=== PATIENT | female | born 1990 | race Caucasian/White ===

== ENCOUNTER 2016-12-14 18:13 | Emergency (ER) | payer OTHER ==
[2016-12-14] MEDS ORDERED: PHENAZOPYRIDINE 100 MG TABLET PO STA (20:00)
[2016-12-14] MEDS ORDERED: SULFAMETH/TRIMETH DS 800/160 MG TABLET PO STA (20:00)
[2016-12-14] MEDS ORDERED: PHENAZOPYRIDINE 100 MG TABLET PO ONE (20:03)
== END 2016-12-14 20:14 | disposition home or self-care (01) ==
DX: N30.00 Acute cystitis without hematuria (principal)
CPT/HCPCS: 81001; 81025; 99283; A9270

== ENCOUNTER 2017-03-29 09:51 | Outpatient (CLI) | payer OTHER | END 2017-03-29 09:52 | disposition home or self-care (01) | LOC: LAB.R 09:51 | PROVIDERS: ATTEND Obstetrics & Gynecology | DX: Z11.3 Encounter for screening for infections with a predominantly sexual mode of transmission (principal) | CPT/HCPCS: 87491; 87591 ==

== ENCOUNTER 2017-09-16 08:00 | Outpatient (CLI) | payer OTHER ==
[2017-09-16 18:53] LABS: BASOPHILS # (AUTO) 0.1 10^3/uL (0.0-0.1); BASOPHILS % (AUTO) 0.8 %; EOSINOPHILS # (AUTO) 0.1 10^3/uL (0.0-0.7); EOSINOPHILS % (AUTO) 1.1 %; HGB - HEMOGLOBIN 11.9 g/dL (12.0-16.0); LYMPHOCYTES # (AUTO) 1.6 10^3/uL (1.5-3.5); MEAN CORPUSCULAR HEMOGLOBIN 30.8 pg (27.0-31.0); MEAN CORPUSCULAR HGB CONC 33.6 g/dL (32.0-36.0); MEAN CORPUSCULAR VOLUME 91.7 fL (81.0-99.0); MEAN PLATELET VOLUME 8.4 fL (7.9-10.8); MONOCYTES # (AUTO) 0.6 10^3/uL (0.0-1.0); MONOCYTES % (AUTO) 6.2 %; NEUTROPHILS # (AUTO) 6.7 10^3/uL (1.5-6.6); NEUTROPHILS % (AUTO) 73.9 %; PLT - PLATELET COUNT 269 10^3/uL (130-450); RED BLOOD COUNT 3.87 10^6/uL (4.20-5.40); RED CELL DISTRIBUTION WIDTH 13.2 % (12.0-15.0)
[2017-09-17 12:01] LABS: HEPATITIS B SURFACE ANTIGEN NON-REACTIVE (NON-REACTIVE)
[2017-09-17 12:51] LABS: HIV AG/AB 4TH GEN NON-REACTIVE (NON-REACTIVE)
== END 2017-09-16 08:01 | disposition home or self-care (01) ==
LOC: LAB.N 08:00
PROVIDERS: ATTEND Obstetrics & Gynecology
DX: Z36.9 Encounter for antenatal screening, unspecified (principal)
CPT/HCPCS: 36415; 81001; 81599; 85025; 86762; 86850; 86900; 86901; 87340; 87389

== ENCOUNTER 2017-09-17 13:32 | Outpatient (CLI) | payer OTHER ==
[2017-09-17 19:30] LABS: BILIRUBIN,URINE NEGATIVE (NEGATIVE); GLUCOSE, URINE (UA) NEGATIVE (NEGATIVE); KETONES,URINE (UA) NEGATIVE (NEGATIVE); LEUKOCYTE ESTERASE, URINE NEGATIVE (NEGATIVE); NITRITE,URINE NEGATIVE (NEGATIVE); OCCULT BLOOD,URINE NEGATIVE (NEGATIVE); PH,URINE 6.5 PH (5.0-7.5); PROTEIN,URINE NEGATIVE (NEGATIVE); UROBILINOGEN,URINE 0.2 (NORMAL) E.U./dL (NORMAL)
[2017-09-17 19:37] LABS: BACTERIA,URINE Moderate /HPF (None Seen); CLARITY,URINE CLEAR (CLEAR); CRYSTALS,URINE 0-2 Calcium Oxalate /LPF; RBC,URINE 0-5 /HPF (0-5); SQUAMOUS EPITHELIAL CELL,UR MOD Squamous (<= Few)
== END 2017-09-17 13:33 | disposition home or self-care (01) ==
LOC: LAB.R 13:32
PROVIDERS: ATTEND Obstetrics & Gynecology
DX: Z36.9 Encounter for antenatal screening, unspecified (principal)
CPT/HCPCS: 81001

== ENCOUNTER 2017-12-19 07:29 | Outpatient (CLI) | payer OTHER ==
--- NOTE | 2017-12-19 16:21 | Ultrasound Report ---
OB ULTRASOUND: 12/19/2017 CLINICAL INDICATION: anatomy. TECHNIQUE: Real-time scanning was performed with chemical sales representative static images obtained. LAST MENSTRUAL PERIOD: 07/23/2017 Clinical Age: 21 weeks 2 days US Age: 21 weeks 2 days EFW Hadlock: 436 grams EFW% Hadlock: 61% Heart Rate: 146 bpm EDC: 04/29/2018 US EDC: 04/29/2018 BPD Hadlock: 21 weeks 0 days; Mean mm 50 HC Hadlock: 21 weeks 0 days; Mean mm 187 AC Hadlock: 21 weeks 6 days; Mean mm 169 FL Hadlock: 21 weeks 3 days; Mean mm 36 Presentation: variable Placental Location: anterior Cervical Length: TA 4.1 cm Amniotic Fluid: subjectively normal; MVP 3.7 cm FINDINGS There is a single viable intrauterine gestation, in variable position. heart rate is 146 BPM. The placenta is anterior, without evidence of previa. Amniotic fluid volume is subjectively normal, with deepest pocket of 3.7 cm. By size, the fetus measures 21 weeks 2 days (21 weeks 2 days by LMP). The following anatomic structures were visualized and appear normal: The intracranial contents, including the ventricles and posterior fossa; the lips and orbits; the spine; the heart, including 4 chamber view and outflow tracts, and diaphragm; the abdominal contents, including the stomach, the bilateral kidneys, and urinary bladder, as well as a normal 3 vessel cord insertion; 4 limbs. No free fluid or adnexal lesion is appreciated. IMPRESSION: SINGLE VIABLE INTRAUTERINE GESTATION, WITH SIZE IN KEEPING WITH LMP DATING. NORMAL ANATOMIC SURVEY. TD: 12/19/2017 11:39 [facility]
== END 2017-12-19 07:30 | disposition home or self-care (01) ==
LOC: DI 07:29
PROVIDERS: ATTEND Obstetrics & Gynecology
DX: Z36.9 Encounter for antenatal screening, unspecified (principal)
CPT/HCPCS: 76811

== ENCOUNTER 2018-02-07 16:05 | Outpatient (CLI) | payer OTHER ==
[2018-02-07 17:36] LABS: HGB - HEMOGLOBIN 11.8 g/dL (12.0-16.0); MEAN CORPUSCULAR HEMOGLOBIN 30.7 pg (27.0-31.0); MEAN CORPUSCULAR HGB CONC 33.5 g/dL (32.0-36.0); MEAN CORPUSCULAR VOLUME 91.8 fL (81.0-99.0); MEAN PLATELET VOLUME 6.9 fL (7.9-10.8); RED BLOOD COUNT 3.83 10^6/uL (4.20-5.40); RED CELL DISTRIBUTION WIDTH 12.6 % (12.0-15.0); WHITE BLOOD COUNT 12.1 x10^3/uL (4.8-10.8)
== END 2018-02-07 16:06 | disposition home or self-care (01) ==
LOC: LAB 16:05
PROVIDERS: ATTEND Obstetrics & Gynecology
DX: Z34.90 Encounter for supervision of normal pregnancy, unspecified, unspecified trimester (principal)
CPT/HCPCS: 36415; 82950; 85027; 86850

== ENCOUNTER 2018-03-06 15:50 | Outpatient (CLI) | payer OTHER ==
[2018-03-06] MEDS ORDERED: LACTATED RINGERS 1,000 ML IV ONE (16:37)
[2018-03-06] MEDS ORDERED: SODIUM CHLORIDE FLUSH 0.9% 10 ML SYRINGE ONE (16:56)
[2018-03-06 16:58] LABS: BILIRUBIN,URINE NEGATIVE (NEGATIVE); GLUCOSE, URINE (UA) NEGATIVE (NEGATIVE); KETONES,URINE (UA) NEGATIVE (NEGATIVE); LEUKOCYTE ESTERASE, URINE NEGATIVE (NEGATIVE); NITRITE,URINE NEGATIVE (NEGATIVE); OCCULT BLOOD,URINE NEGATIVE (NEGATIVE); PROTEIN,URINE NEGATIVE (NEGATIVE); UROBILINOGEN,URINE 0.2 (NORMAL) E.U./dL (NORMAL)
[2018-03-06 17:01] LABS: CLARITY,URINE CLEAR (CLEAR)
[2018-03-06 20:37] VITALS: BP 120/77
== END 2018-03-06 20:25 | disposition home or self-care (01) ==
LOC: WFO 15:50 → FBP 15:52 → WFO 20:25
PROVIDERS: ATTEND Nurse Practitioner Obstetrics & Gynecology
DX: O47.03 False labor before 37 completed weeks of gestation, third trimester (principal); Z3A.32 32 weeks gestation of pregnancy
CPT/HCPCS: 81003; 99213; J7120; 81001

== ENCOUNTER 2018-03-27 16:17 | Outpatient (CLI) | payer OTHER | END 2018-03-27 23:59 | disposition home or self-care (01) | LOC: LAB.R 16:17 | PROVIDERS: ATTEND Registered Nurse | DX: R30.0 Dysuria (principal) | CPT/HCPCS: 87086 ==

== ENCOUNTER 2018-03-31 14:53 | Outpatient (CLI) | payer OTHER | END 2018-03-31 14:54 | disposition home or self-care (01) | LOC: LAB.R 14:53 | PROVIDERS: ATTEND Registered Nurse | DX: Z34.83 Encounter for supervision of other normal pregnancy, third trimester (principal) | CPT/HCPCS: 87081 ==

== ENCOUNTER 2018-04-07 10:33 | Outpatient (CLI) | payer OTHER ==
[2018-04-07 10:53] LABS: BASOPHILS # (AUTO) 0.1 10^3/uL (0.0-0.1); BASOPHILS % (AUTO) 1.1 %; EOSINOPHILS # (AUTO) 0.1 10^3/uL (0.0-0.7); EOSINOPHILS % (AUTO) 1.2 %; HGB - HEMOGLOBIN 12.4 g/dL (12.0-16.0); LYMPHOCYTES # (AUTO) 1.8 10^3/uL (1.5-3.5); LYMPHOCYTES % (AUTO) 15.9 %; MEAN CORPUSCULAR HEMOGLOBIN 30.6 pg (27.0-31.0); MEAN CORPUSCULAR HGB CONC 34.7 g/dL (32.0-36.0); MEAN CORPUSCULAR VOLUME 88.1 fL (81.0-99.0); MEAN PLATELET VOLUME 9.2 fL (7.9-10.8); MONOCYTES % (AUTO) 8.4 %; NEUTROPHILS # (AUTO) 8.4 10^3/uL (1.5-6.6); NEUTROPHILS % (AUTO) 73.4 %; PLT - PLATELET COUNT 227 10^3/uL (130-450); RED BLOOD COUNT 4.07 10^6/uL (4.20-5.40); WHITE BLOOD COUNT 11.4 x10^3/uL (4.8-10.8)
[2018-04-07] MEDS ORDERED: LABETALOL 100 MG TABLET PO SCH ×2 (11:00→12:00)
[2018-04-07 11:04] LABS: URIC ACID 7.1 mg/dL (2.6-7.2)
[2018-04-07 11:14] LABS: CREATININE,URINE 20.4 mg/dL
[2018-04-07 11:22] LABS: TOTAL PROTEIN,URINE TIMED < 6 mg/dL
[2018-04-07 13:15] VITALS: BP 140/100
== END 2018-04-07 13:00 | disposition home or self-care (01) ==
LOC: WFO 10:33 → FBP 10:35 → WFO 13:00
PROVIDERS: ATTEND Nurse Practitioner Obstetrics & Gynecology
DX: O13.3 Gestational [pregnancy-induced] hypertension without significant proteinuria, third trimester (principal); Z3A.36 36 weeks gestation of pregnancy
CPT/HCPCS: 36415; 59025; 82570; 83615; 84156; 84450; 84550; 85025; 99213; A9270

== ENCOUNTER 2018-04-08 01:44 | Inpatient (IN) | payer OTHER ==
--- NOTE | 2018-04-07 14:26 | HISTORY & PHYSICAL EXAMINATION ---
Admit History - Instructions [place]/Slash: -Left hand click circles element as positive or present. -Right hand click slashes element as negative or not present. - Visit Reason Visit Reason: Other - : 1 Parity: 0 Premature: 0 Ectopic: 0 : 0 Care: positive: [facility] Risk/History: positive: None Complications This : positive: Other Smoking Status: Never smoker - Mother's Labs Mother's Blood Type: positive: A Mother's RH: positive: Positive GBS: positive: Group B Strep Positive Rubella Status: positive: Immune Meds/Allgy - Home Medications Home Medications: Ambulatory Orders Medication Instructions Recorded Confirmed Omeprazole [PriLOSEC] 20 mg PO DAILY 12/14/16 12/14/16 Phenazopyridine HCl [Pyridium] 200 mg PO TID #6 tablet 12/14/16 Sulfamethoxazole/Trimethoprim 1 each PO BID 3 Days tablet 12/14/16 [Sulfamethoxazole-Tmp Ds Tablet] - Allergies Allergies/Adverse Reactions: Allergies Allergy/AdvReac Type Severity Reaction Status Date / Time No Known Drug Allergies Allergy Verified 12/14/16 18:28 Plan for Labor - Plan For Labor I expect patient to be DC'd or transferred within 96 hours.: Yes Plan for Labor: HPI: Grace presented for routine care [facility] on 01/2018 where she was noted to have elevated BP in severe range. She was directed to L&D for immediate evaluation for severe gestational HTN and assessment of status. Upon her arrival her BP was serially elevated in the moderate-severe range. PIH labs and MTP/creatinine ratio ordered. NST revealed heart rate baseline 130s, moderate variability, + accels, no decels. Intermittent uterine contractions. Pt states contractions have increased in intensity since SVE in the office. SVE at that time 80/-1, vertex , midposition, soft consistency. Reports +FM. She denies MAX, visual disturbances , RUQ or epigastric pain, neg edema. Dating Criteria: 1. LMP 07/23/2017 2. First ultrasound 09/13/2017 @ 8 weeks - agrees 3. Serial exams 11-37wks agree OB History: G1: Current [employer] History: Menarche at age 12; menses q 27-28 days, regular No hx abnormal pap-last pap 09/2017 WNL No hx STDs No hx [employer] surgeries PMHx: Hiatal hernia Surgical Hx: Tonsillectomy 1995 Social Hx: Never smoker. She is a teacher. No high risk activities. [place]. No ETOH or IVDA. Family Hx: Breast cancer - maternal grandmother labs: A Pos; Antibody neg GC/CT neg Hgb 11.9; Hct 35.5; PLT 269 Hep B non-reactive RPR non-reactive HIV non-reactive Rubella immune 28 week labs: 1 hour GTT 106 Antibody neg Hgb 11.8 GBS positive 04/07/2018 PIH labs: Hgb 12.4 Hct 35.8 PLT 227 Uric acid 7.1 AST 36 LDH 114 Urine total protein <6 Protein/Creatinine Ratio <0.2 Ultrasound: FAS WNL; anterior placenta, no previa. Size c/w dating. Assessment: 27yo @ 36.6wks gestation by L=8wk U/S Severe gestational HTN S/p 100mg labetalol PO x 2 doses - normotensive Cervix favorable PIH labs WNL Plan: Release home with precautions. Pt to return promptly at 0800 on 04/08/2018 for IOL secondary to severe gestational HTN Will initiate penicillin for GBS prophylaxis upon admit Initiate misoprostol 50mcg BC q 4 hours Plan AROM when cervix 3-4cm dilatation and min 2 doses antibiotics administered for GBS prophylaxis. Reviewed warning s/sx and precautions. Pt verbalized understanding and agrees to above plan. Denies further questions or concerns at this time.
[2018-04-08] MEDS ORDERED: PENICILLIN G POTASSIUM 5,000,000 UNIT in SODIUM CHLORIDE 0.9% MINIBAG 100 ML IV ONE ×2 (02:58→08:00)
[2018-04-08 03:00] LABS: BASOPHILS # (AUTO) 0.1 10^3/uL (0.0-0.1); BASOPHILS % (AUTO) 0.8 %; EOSINOPHILS # (AUTO) 0.1 10^3/uL (0.0-0.7); EOSINOPHILS % (AUTO) 0.8 %; HGB - HEMOGLOBIN 11.9 g/dL (12.0-16.0); LYMPHOCYTES # (AUTO) 2.2 10^3/uL (1.5-3.5); LYMPHOCYTES % (AUTO) 15.6 %; MEAN CORPUSCULAR HEMOGLOBIN 30.2 pg (27.0-31.0); MEAN CORPUSCULAR HGB CONC 34.3 g/dL (32.0-36.0); MEAN CORPUSCULAR VOLUME 88.1 fL (81.0-99.0); MEAN PLATELET VOLUME 9.7 fL (7.9-10.8); MONOCYTES # (AUTO) 1.2 10^3/uL (0.0-1.0); MONOCYTES % (AUTO) 8.5 %; NEUTROPHILS # (AUTO) 10.7 10^3/uL (1.5-6.6); NEUTROPHILS % (AUTO) 74.3 %; PLT - PLATELET COUNT 217 10^3/uL (130-450); RED BLOOD COUNT 3.93 10^6/uL (4.20-5.40); RED CELL DISTRIBUTION WIDTH 13.2 % (12.0-15.0); WHITE BLOOD COUNT 14.4 x10^3/uL (4.8-10.8)
[2018-04-08] MEDS ORDERED: SODIUM CHLORIDE FLUSH 0.9% 10 ML SYRINGE IVP PRN ×2 (03:01→08:00)
[2018-04-08] MEDS ORDERED: fent/BUPIV 2 MCG/0.125% 250 ML EP ONE (03:21)
[2018-04-08 03:32] LABS: RUPTURE OF MEMBRANES PLUS POSITIVE (NEGATIVE)
[2018-04-08] MEDS ORDERED: LIDOCAINE 1% 50 ML MDV ONE (03:42)
[2018-04-08] MEDS ORDERED: OXYTOCIN/SODIUM CHLORIDE 500 ML IV ONE ×3 (03:50→10:13)
[2018-04-08] MEDS ORDERED: LACTATED RINGERS 1,000 ML IV SCH ×2 (04:00→08:00)
[2018-04-08] MEDS: LABETALOL 100 MG TABLET PO SCH ×3 (04:51→20:06)
[2018-04-08] MEDS ORDERED: WITCH HAZEL/GLYCERIN 1 EACH MED..PAD TOP PRN (05:08)
[2018-04-08] MEDS ORDERED: HYDROCORTISONE/PRAMOXINE 10 GM PR PRN (05:08)
[2018-04-08] MEDS ORDERED: OXYTOCIN/SODIUM CHLORIDE 250 ML IV ONE (05:08)
--- NOTE | 2018-04-08 05:20 | DELIVERY NOTE ---
Delivery Note - Labor Labor: positive: Spontaneous - Delivery Method Delivery Method: positive: Spontaneous vaginal delivery - Presentation Presentation: positive: Vertex, NALINI - left occiput anterior - Nuchal Cord Nuchal Cord: positive: None - Amniotic Fluid Description Amniotic Fluid Description: positive: Clear - Episiotomy Type Episiotomy Type: positive: None - Laceration Laceration: positive: 1st degree, Labial - Suture Suture Type: positive: Vicryl, Chromic Suture Size: positive: 2-0, 4-0 - Delivery Outcome Delivery Outcome: positive: Livebirth - : positive: Placed in direct skin contact with mother, Stimulated, Eland used [place] sex: positive: Male - Cord Cord: positive: 3 vessels - Placenta Placenta: positive: Intact, Spontaneous - Estimated Blood Loss Estimated Blood Loss (in cc): 400 - Post Delivery Events Post Delivery Events: positive: No post delivery events - Delivery Comments (Free Text/Narrative) Delivery Comments (Free Text/Narrative): Labor: This 27yo @ 37.0wks gestation by L=8wk U/S presented at approximately 0230 in active labor and c/o leakage of a small amount of clear vaginal fluid beginning at 0000. Cervix was 4/90/0 and vertex. FHR pattern demonstrated 130s baseline in a Category I pattern. Normal labor course. Patient progressed rapidly to c/c/+1 with spontaneous urge to push at 0335. : Normal SVB of a viable male . No nuchal. 's 9 and 9 at 1 and 5 min respectively at 0414 on 04/08/2018. The was placed on maternal abdomen, stimulated, dried, and placed skin to skin. The umbilical cord was allowed to stop pulsating at which time it was doubly clamped and cut by FOB. Cord blood was obtained. Placenta delivered spontaneously and intact at 0421. 3VC. Pitocin was administered via IV for hemostasis. EBL 400mL. Fourth Stage: Uterine fundus firm and there is no excessive bleeding. The perineum, vagina, and cervix were inspected and found to have first degree laceration which was repaired using 2-[address]-1 needle under sterile conditions in the usual fashion. Additionally there were minor bilateral labial lacerations which were repaired with interrupted stitches using a 4-0 chromic on an SH needle in the usual fashion under sterile conditions. Vaginal examination following repair was done. Tissue well approximated. initiated. Family bonding well. Both mother and baby were left in stable conditions.
[2018-04-08] MEDS: IBUPROFEN 800 MG TABLET PO SCH ×4 (05:58→23:50)
[2018-04-08] MEDS: ACETAMINOPHEN 325 MG TABLET PO PRN ×3 (05:59→17:48)
[2018-04-08] MEDS ORDERED: PENICILLIN G POTASSIUM 2,500,000 UNIT in SODIUM CHLORIDE 0.9% 100ML 100 ML IV SCH ×2 (06:30→12:00)
[2018-04-08] MEDS ORDERED: SODIUM CHLORIDE FLUSH 0.9% 10 ML SYRINGE IVP SCH ×2 (08:00→09:00)
[2018-04-08] MEDS ORDERED: miSOPROStol 100 MCG TABLET BC SCH (08:00)
[2018-04-08] MEDS ORDERED: fentaNYL 100 MCG/2 ML VIAL IVP PRN (08:00)
[2018-04-08] MEDS ORDERED: ACETAMINOPHEN 325 MG TABLET PO PRN (08:00)
[2018-04-08] MEDS ORDERED: ONDANSETRON 4 MG/2 ML VIAL IVP PRN (08:00)
[2018-04-08] MEDS ORDERED: LABETALOL 100 MG TABLET PO SCH (08:00)
[2018-04-08] MEDS: DOCUSATE SODIUM 100 MG CAPSULE PO SCH (10:31)
[2018-04-09] MEDS: IBUPROFEN 800 MG TABLET PO SCH ×2 (05:57→11:52)
--- NOTE | 2018-04-09 08:48 | Discharge Plan ---
Discharge Plan Disposition: 01 Home, Self Care Condition: Good Diet: Regular Activity Restrictions: No Restrictions Shower Restrictions: No Driving Restrictions: No Weight Bearing: Full Weight Additional Instructions or Follow Up instructions: S: Bonding well with baby. without difficulty. Pain well controlled with ibuprofen. Bleeding decreased and is moderate. Denies clotting. Urinating without difficulty. Perineum comfortable. supportive at the bedside. O: BP 129/77, T 36.3. Heart RRR w/o M/G/R, lungs CTAB, abdomen soft and nontender with fundus firm at U. Perineum intact. Light lochia rubra. A: 27yo -->P1 s/p TSVD of viable male infant Gestational HTN-normotensive on labetalol P: Discharge home today on PPD #1. Reviewed self care and warning signs/symptoms and when to present. Reviewed PIH/preeclampsia warning signs and symptoms. Rx for labetalol 100mg 1 tab PO bid sent to [facility] in [place]. Pt will continue to take as prescribed until at least 3 weeks pp. Will evaluate BP and develop further plan of care at that time. She plans to f/u with myself at [facility] in 1 week for support and blood pressure evaluation and then in 3 weeks for routine PP visit. Pt and verbalized understanding and agree to above plan. They deny further questions or concerns at this time. No Smoking: If you smoke, Please STOP! Call for help. Follow-up with: Shayla Dowd CNM, GRACE [Provider Admit Priv/Credential] -
[2018-04-09] MEDS: LABETALOL 100 MG TABLET PO SCH (09:20)
[2018-04-09] MEDS: DOCUSATE SODIUM 100 MG CAPSULE PO SCH (09:21)
[2018-04-09 09:48] VITALS: BP 132/93
--- NOTE | 2018-04-09 18:23 | DISCHARGE SUMMARY ---
Physician: GRACE Rodriguez DATE OF ADMISSION: 04/08/2018 DATE OF DISCHARGE: 04/09/2018 DIAGNOSES ON ADMISSION 1. A 27-year-old G1, P0-0-0 at 37 weeks' gestation. 2. Active labor. 3. Gestational hypertension. DIAGNOSES ON DISCHARGE 1. A 27-year-old G1, P1-0-0-1, status post spontaneous vaginal delivery on 04/08/2018. 2. Normal recovery. 3. Blood pressure normotensive on 100 mg labetalol p.o. b.i.d. BRIEF HISTORY: She is a patient at [facility] who presented on 04/08/2018 with comp laints of contractions. The patient was found to contract every 3-5 minutes and her cervix was 4 cm dilated, 80% effaced, and 0 station. She progressed rapidly to complete with a spontaneous urge to p ush. At 0335 on 04/08/2018, she spontaneously delivered a viable male named Joseluis. Apgars w ere 9 and 9 at 1 and 5 minutes respectively. EBL 400 mL. The patient had a first-degree laceration, which was repaired with a 2-0 Vicryl on a CT1 needle under sterile conditions in the usual fashion. Additionally, there was a minor bilateral labial laceration, which was repaired with interrupted sti tches using a 4-0 chromic on an SH1 needle in the usual fashion under sterile conditions. She has be en doing well in her course. Initially, she had some difficulty with spontaneous urinatio n but since 1999 last evening, she has been able to urinate without difficulty. Her lochia is normal and her pain is well controlled with oral medications. She will be discharged home today on postpar hadley day #1 with prescription for labetalol 100 mg 1 tab p.o. b.i.d. with instructions to take as pres cribed for a minimum of 3 weeks . She intends to follow up with myself at [facility] in 1 week for support visit as well as blood pressure evaluation. She will the n follow up in 3 weeks for routine visit. She has been given precautions to call if she h as any worsening fevers, chills, abdominal pain, increased bleeding, or foul-smelling vaginal lochia. TD: 04/09/2018 12:04
== END 2018-04-09 13:00 | disposition home or self-care (01) | DRG 775 ==
LOC: WFO 01:44 → FBP 01:46 → WFO 02:55 → FBP 03:01
PROVIDERS: ADMIT Nurse Practitioner Obstetrics & Gynecology; ATTEND Nurse Practitioner Obstetrics & Gynecology
PROC: 10E0XZZ Delivery of Products of Conception, External Approach (ICD-10-PCS; principal; 2018-04-08)
PROC: 0UQMXZZ Repair Vulva, External Approach (ICD-10-PCS; 2018-04-08)
PROC: 0UQC7ZZ Repair Cervix, Via Natural or Artificial Opening (ICD-10-PCS; 2018-04-08)
PROC: 10E0XZZ Delivery of Products of Conception, External Approach (ICD-10-PCS; 2018-04-08)
PROC: 0HQ9XZZ Repair Perineum Skin, External Approach (ICD-10-PCS; 2018-04-08)
PROC: 0UQGXZZ Repair Vagina, External Approach (ICD-10-PCS; 2018-04-08)
DX: O13.4 Gestational [pregnancy-induced] hypertension without significant proteinuria, complicating childbirth (principal); O99.824 Streptococcus B carrier state complicating childbirth; O70.0 First degree perineal laceration during delivery; Z3A.37 37 weeks gestation of pregnancy; Z37.0 Single live birth; O71.5 Other obstetric injury to pelvic organs; O71.3 Obstetric laceration of cervix
CPT/HCPCS: 84112; 85025; 99213